=== PATIENT | female | born 1950 | race Caucasian/White ===

== ENCOUNTER → 2021-05-01 | Outpatient (CLI) | payer MEDICARE ==
[~2021-05-01] MED LIST: ASPIRIN EC81 MG PO; CEFUROXIME500 MG PO; PYRIDIUM200 MG PO
== END ==
LOC: EXRD 04-08 10:30
DX: B19.20 Unspecified viral hepatitis C without hepatic coma (principal)
CPT/HCPCS: 76705

== ENCOUNTER → 2021-06-29 | Outpatient (CLI) | payer MEDICARE | LOC: MAMO 06-01 09:00 | DX: Z12.31 Encounter for screening mammogram for malignant neoplasm of breast (principal) | CPT/HCPCS: 77063; 77067 ==